=== PATIENT | male | born 1985 | race Caucasian/White ===

== ENCOUNTER 2017-03-05 00:37 | Emergency (ER) | payer OTHER ==
[~2017-03-05] VITALS: Ht 185.4 cm; Wt 91.4 kg
[~2017-03-05 00:37] MED LIST: APIDINJ SQ; DICL50 PO; GABA400C5 PO; LANTUS2P SQ; LISI-363 PO; ROBA750T3 PO; TRAM50 PO
[2017-03-05 00:45] VITALS: BP 138/88; PULSE 93; RESP 16; TEMP 97.9; O2SAT 96
== END 2017-03-05 01:40 | disposition left against medical advice (07) ==
LOC: PHED 00:37
DX: Z53.21 Procedure and treatment not carried out due to patient leaving prior to being seen by health care provider (principal)
CPT/HCPCS: 99281